=== PATIENT | female | born 1960 | race African-American/Black ===

== ENCOUNTER 2018-07-26 08:07 | Inpatient (IN) | payer OTHER ==
[~2018-07-26] VITALS: Ht 162.6 cm; Wt 51.3 kg
[2018-07-26 08:07] VITALS: Ht 162.6 cm; Wt 51.3 kg
[2018-07-26 09:33] LABS: BASOPHIL % 0.5 % (0-2)
[2018-07-26 09:38] LABS: PLATELET COUNT 410 x10^3mcL (130-400); RED CELL DISTRIBUTION WIDTH 15.7 % (11.5-14.5)
[2018-07-26 09:39] LABS: CALCIUM 8.5 mg/dL (8.5-10.1); CARBON DIOXIDE 25.3 mmol/L (21-32); CHLORIDE SERUM 108 mmol/L (98-107); CREATININE SERUM 0.7 mg/dL (0.6-1.0); GFR1 > 60 mL/min; GLUCOSE SERUM 102 mg/dL (74-106); POTASSIUM SERUM 3.9 mmol/L (3.5-5.1); SODIUM SERUM 143 mmol/L (136-145)
[2018-07-26 09:59] LABS: ALKALINE PHOSPHATASE 124 U/L (46-116); ALT/SGPT 16 U/L (14-59); AST/SGOT 19 U/L (15-37); CHOLESTEROL 141 mg/dL (<200); HDL CHOLESTEROL 45 mg/dL (40-60); LIPASE 77 IU/L (73-393); T4(THYROXINE) 7.4 ug/dL (4.7-13.3); TOTAL PROTEIN, SERUM 7.1 g/dL (6.4-8.2)
[2018-07-26 10:02] LABS: ALBUMIN 2.5 g/dL (3.4-5.0); AMYLASE 205 U/L (25-115)
[2018-07-26 10:14] LABS: UA SPECIFIC GRAVITY >=1.030 (1.005-1.035); microscopic required? YES; urine erythrocyte 2+ (NEGATIVE)
[2018-07-26 10:23] LABS: AMPHETAMINE QUAL UR NONE DETECTED (See below)
[2018-07-26 13:15] VITALS: BP 102/67
[2018-07-26 14:12] VITALS: BP 116/80
[2018-07-26 17:33] VITALS: BP 112/73
[2018-07-26 22:05] VITALS: BP 100/64
[2018-07-27 05:34] VITALS: BP 96/57
[2018-07-27 06:29] LABS: ALKALINE PHOSPHATASE 113 U/L (46-116); ALT/SGPT 16 U/L (14-59); AST/SGOT 14 U/L (15-37); BILIRUBIN TOTAL 0.2 mg/dL (0.20-1.00); CALCIUM 8.8 mg/dL (8.5-10.1); CARBON DIOXIDE 30.3 mmol/L (21-32); CHLORIDE SERUM 100 mmol/L (98-107); CREATININE SERUM 0.7 mg/dL (0.6-1.0); GFR1 > 60 mL/min; GLUCOSE SERUM 112 mg/dL (74-106); POTASSIUM SERUM 3.8 mmol/L (3.5-5.1); SODIUM SERUM 139 mmol/L (136-145)
[2018-07-27 06:41] LABS: ALBUMIN 2.5 g/dL (3.4-5.0)
[2018-07-27 09:00] VITALS: BP 98/69
[2018-07-27 12:48] VITALS: BP 90/63
[2018-07-27 16:10] VITALS: BP 90/63
[2018-07-27 17:06] VITALS: BP 92/65
[2018-07-27 21:06] VITALS: BP 95/66
[2018-07-28 05:36] VITALS: BP 92/63
[2018-07-28 06:58] LABS: ALKALINE PHOSPHATASE 117 U/L (46-116); ALT/SGPT 23 U/L (14-59); AST/SGOT 23 U/L (15-37); BILIRUBIN TOTAL 0.36 mg/dL (0.20-1.00); CALCIUM 8.8 mg/dL (8.5-10.1); CHLORIDE SERUM 100 mmol/L (98-107); CREATININE SERUM 0.7 mg/dL (0.6-1.0); GFR1 > 60 mL/min; GLUCOSE SERUM 101 mg/dL (74-106); POTASSIUM SERUM 3.9 mmol/L (3.5-5.1); SODIUM SERUM 140 mmol/L (136-145); TOTAL PROTEIN, SERUM 7.4 g/dL (6.4-8.2)
[2018-07-28 07:06] LABS: ALBUMIN 2.6 g/dL (3.4-5.0)
[2018-07-28 10:13] VITALS: BP 96/69
[2018-07-28 12:28] VITALS: BP 96/69
[2018-07-28 13:32] VITALS: BP 110/75
== END 2018-07-28 14:17 | disposition short-term general hospital (02) | DRG 280 ==
LOC: ED 08:07 → DU 12:53
PROVIDERS: Emergency Medicine; ADMIT Internal Medicine
DX: D15.1 Benign neoplasm of heart (principal); I21.4 Non-ST elevation (NSTEMI) myocardial infarction; I50.43 Acute on chronic combined systolic (congestive) and diastolic (congestive) heart failure; J45.901 Unspecified asthma with (acute) exacerbation; Z68.1 Body mass index [BMI] 19.9 or less, adult; E44.0 Moderate protein-calorie malnutrition; D64.9 Anemia, unspecified; F17.210 Nicotine dependence, cigarettes, uncomplicated
CPT/HCPCS: 36600; 83880; 94150; 99406; J1644; J1940; J2930; J3475; J7613; J7620; J7626; J7644; Q0092

== ENCOUNTER 2019-06-25 16:53 | Emergency (ER) | payer OTHER ==
[2019-06-25 19:14] VITALS: BP 121/75
== END 2019-06-25 19:14 | disposition home or self-care (01) ==
LOC: ED 16:53
DX: M79.2 Neuralgia and neuritis, unspecified (principal)
CPT/HCPCS: 87804; J1885; J2270; Q0162

== ENCOUNTER 2019-08-18 19:56 | Emergency (ER) | payer OTHER ==
[~2019-08-18] VITALS: Ht 167.6 cm; Wt 54.6 kg
[2019-08-18 19:58] VITALS: Ht 167.6 cm; Wt 54.6 kg
[2019-08-18 21:22] VITALS: BP 139/68
== END 2019-08-18 21:23 | disposition home or self-care (01) ==
LOC: ED 19:56
DX: J45.901 Unspecified asthma with (acute) exacerbation (principal); I10 Essential (primary) hypertension; Z98.890 Other specified postprocedural states
CPT/HCPCS: J7512; J7613; J7644

== ENCOUNTER 2019-09-02 15:27 | Emergency (ER) | payer OTHER ==
[~2019-09-02] VITALS: Ht 157.5 cm; Wt 57.6 kg
[2019-09-02 15:32] VITALS: Ht 157.5 cm; Wt 57.6 kg
[2019-09-02 16:09] LABS: BASOPHIL % 0.6 % (0-2); PLATELET COUNT 290 x10^3mcL (130-400); RED CELL DISTRIBUTION WIDTH 12.8 % (11.5-14.5)
[2019-09-02 16:23] LABS: CALCIUM 9.5 mg/dL (8.5-10.1); CARBON DIOXIDE 31.4 mmol/L (21-32); CHLORIDE SERUM 104 mmol/L (98-107); CREATININE SERUM 0.7 mg/dL (0.6-1.0); GFR1 > 60 mL/min; GLUCOSE SERUM 103 mg/dL (74-106); SODIUM SERUM 142 mmol/L (136-145)
[2019-09-02 16:37] LABS: ALKALINE PHOSPHATASE 111 U/L (46-116); ALT/SGPT 19 U/L (14-59); AST/SGOT 10 U/L (15-37); BILIRUBIN TOTAL 0.26 mg/dL (0.20-1.00); LIPASE 7 IU/L (73-393); TOTAL PROTEIN, SERUM 7.3 g/dL (6.4-8.2)
[2019-09-02 16:53] LABS: ALBUMIN 3.7 g/dL (3.4-5.0); CHOLESTEROL 225 mg/dL (<200); HDL CHOLESTEROL 79 mg/dL (40-60); T4(THYROXINE) 1.9 ug/dL (4.7-13.3)
[2019-09-02 16:53] LABS: UA SPECIFIC GRAVITY 1.015 (1.005-1.035); microscopic required? YES; urine erythrocyte 1+ (NEGATIVE)
[2019-09-02 16:59] LABS: AMPHETAMINE QUAL UR NONE DETECTED (See below)
[2019-09-02 18:36] VITALS: BP 116/73
== END 2019-09-02 18:36 | disposition home or self-care (01) ==
LOC: ED 15:27
PROVIDERS: Emergency Medicine
DX: R07.81 Pleurodynia (principal); E03.9 Hypothyroidism, unspecified; J45.909 Unspecified asthma, uncomplicated; I10 Essential (primary) hypertension; Z98.890 Other specified postprocedural states
CPT/HCPCS: 36415; 83880; 99406; J1885; Q0092